=== PATIENT | female | born 1945 | race Caucasian/White ===

== ENCOUNTER 2021-01-01 15:04 | Emergency (ER) | payer MEDICARE, OTHER, SELFPAY ==
[2021-01-01 15:30] VITALS: BP 201/88; PULSE 82; RESP 15; TEMP 36.3; O2SAT 98; BMI 24.5
--- NOTE | 2021-01-01 15:38 | DI.US.S_ITS ---
PROCEDURE: US PERIPH VENOUS LOW EXTREM RT INDICATIONS: rule out dvt TECHNIQUE: Real-time imaging, as well as color and pulse Doppler interrogation, were performed of the lower extremity deep veins from the inguinal ligament to the popliteal fossa. COMPARISON: None. FINDINGS: The common femoral, femoral and popliteal veins are normally compressible, and free of intraluminal thrombus. Color and pulse Doppler demonstrate normal phasic intraluminal flow. There is normal augmentation response to distal compression maneuver. There is a complex focus of echogenicity measuring 4.9 x 3.4 x 1.4 cm in the popliteal fossa. IMPRESSION: Venous thrombosis. Complex Street's cyst is noted. Dictated by: Savanah Michael M.D. on 01/01/2021 at 16:03 Approved by: Savanah Michael M.D. on 01/01/2021 at 16:05
--- NOTE | 2021-01-01 17:58 | PC.NURSE ---
pain and swelling in the morning and then the pain goes away. The right lower leg is not hot, red, or swollen.
--- NOTE | 2021-01-01 18:21 | ED.EXTPRO ---
HPI - Extremity Problem General Chief complaint: Extremity Problem,Nontraumatic Stated complaint: right leg problem, Dr ayers Ultra sound Time Seen by Provider: 01/01/21 17:54 Source: patient Mode of arrival: Ambulatory Limitations: no limitations History of Present Illness HPI Narrative: Patient is a 75-year-old female who presents with some mild right leg swelling ongoing for a week. She says that she did have a trip and fall last week but she does not remember injuring her right leg. This morning she woke up and noted she had some contusion around her calcaneus. She gets some sharp shooting pain from her right hip and down her leg which she says she sometimes has hip pain. However this is a little more. No weakness numbness or tingling. She denies any fever. She occasionally has calf pain which she uses an ice pack for. She is very active she walks every day she certainly is not sedentary no recent hospital stays or travel. No prior history of DVT. Her physician in [place] recommended she come to the ED for an ultrasound. MD Complaint: extremity swelling Onset (ago): week(s) (1) Related Data Allergies Allergy/AdvReac Type Severity Reaction Status Date / Time No Known Drug Allergies Allergy Verified 01/01/21 15:33 Review of Systems Review of Systems ROS Unobtainable: All systems reviewed & are unremarkable except as noted in HPI and below Constitutional Constitutional: Denies chills, Denies fever(s), Denies lethargy and Denies weakness ENT Ears, Nose, Mouth, and Throat: Denies change in voice, Denies neck pain and Denies sore throat Cardiovascular Cardiovascular: Denies chest pain, Denies irregular heart rhythm, Denies lightheadedness, Denies palpitations, Denies dyspnea, Denies dyspnea on exertion and Denies orthopnea Respiratory Respiratory: Denies cough, Denies dyspnea, Denies dyspnea on exertion and Denies wheezing Musculoskeletal Musculoskeletal: Denies neck pain Neurologic Neurologic: Denies weakness Endocrine Endocrine: Denies palpitations Allergic/Immunologic Allergic/Immunologic: Denies wheezing Patient History Social History Smoking Status: Unknown if ever smoked Smoking Status: Unknown if ever smoked alcohol intake frequency: 0-2 drinks per day Alcohol type: wine Substance Use Type: does not use Exam Initial Vital Signs Initial Vital Signs: Vital Signs Temperature 97.3 F L 01/01/21 15:30 Pulse Rate 82 01/01/21 15:30 Respiratory Rate 15 01/01/21 15:30 Blood Pressure 201/88 H 01/01/21 15:30 Pulse Oximetry 98 01/01/21 15:30 GENERAL: Very nice pleasant alert 75-year-old female and in [no acute] distress. HEENT: Head atraumatic,EOMI, pupils reactive, face symmetric, [moist] mucous membranes CARDIOVASCULAR: Regular rate and rhythm without murmurs, rubs or gallops. RESPIRATORY: Breath sounds equal bilaterally, no wheezes rales or rhonchi. EXTREMITIES: Normal range of motion, no clubbing or edema. Neurovascularly intact Right lower extremity mild swelling contusion noted around medial side of calcaneus is non tender Achilles intact strong distal pedal pulse. Calf is soft able to move leg but is slightly more swollen around the knee and then her left leg. Full range of motion no pain in hip with movement. Although she points to the lateral side of her gluteus where the pain originates and radiates down her leg. BACK: No vertebral tenderness no step-offs nontender no sign of trauma NEUROLOGICAL: Alert and oriented x4.Normal gait and speech. SKIN: Warm, dry, no laceration, no petechiae, no rashes or lesions. Course Orders Ordered: ED Orders 01/01/21 15:38 US periph venous low extrem rt Stat Vital Signs Vital signs: Vital Signs - 8 hr 01/01/21 15:30 01/01/21 18:57 Temperature 97.3 F L Pulse Rate 82 75 Respiratory Rate 15 17 Blood Pressure 201/88 H 179/87 H Pulse Oximetry 98 100 MDM - Extremity (Nontraumatic) Imaging Data US - DVT: Radiologist's Impression: PROCEDURE: US PERIP VENOUS LOW EXTREM RT INDICATIONS: rule out dvt TECHNIQUE: Real-time imaging, as well as color and pulse Doppler interrogation, were performed of the lower extremity deep veins from the inguinal ligament to the popliteal fossa. COMPARISON: None. FINDINGS: The common femoral, femoral and popliteal veins are normally compressible, and free of intraluminal thrombus. Color and pulse Doppler demonstrate normal phasic intraluminal flow. There is normal augmentation response to distal compression maneuver. There is a complex focus of echogenicity measuring 4.9 x 3.4 x 1.4 cm in the popliteal fossa. IMPRESSION: Venous thrombosis. Complex Street's cyst is noted. Dictated by: Savanah Michael M.D. on 01/01/2021 at 16:03 Approved by: Savanah Michael M.D. on 01/01/2021 at 16:05 ADDENDUM: Correction to the above: No deep venous thrombosis. Dictated by: Savanah Michael M.D. on 01/01/2021 at 16:45 [facility] Narrative Medical decision making narrative: Patient is found to have Street's cyst which might be causing some of the swelling. She has mild contusion on her right medial heel may be from injury last week she certainly is no bony deformity she is ambulatory without issue at this time I see no need for x-ray. She is extremely active unlikely to be DVT and ultrasound does not show DVT. She has pain in her right hip that also radiates down her right thigh similar to sciatic and nerve pain. She says that she does have, some right hip pain that is chronic any way. At this time recommend she follow-up with her PCP in [place]. Discharge Plan Departure Patient Disposition: Home Clinical Impression: Street cyst Qualifiers: Laterality: right Qualified Code(s): M71.21 - Synovial cyst of popliteal space [Street], right knee Instructions: Street Cyst Activity Restrictions/Additional Instructions: *You have been diagnosed with Street's cyst *What to do: At this time no evidence of blood clot you do have a complex Street's cyst noted behind your right knee which may be causing some of the swelling *Continue to take medications as directed Tylenol 650 mg every 4-6 hours if needed for [id number] pain *Follow up with your primary care provider in 2-3 days *Return to ER if you should have increasing pain swelling shortness of breath redness or any new, worsening or concerning symptoms
[2021-01-01 18:57] VITALS: BP 179/87; PULSE 75; RESP 17; O2SAT 100
== END 2021-01-01 18:57 | disposition home or self-care (01) ==
PROVIDERS: Emergency Provider Emergency Medicine
DX: M71.21 Synovial cyst of popliteal space [Baker], right knee (principal); W19.XXXA Unspecified fall, initial encounter
CPT/HCPCS: 93971; 99281; 99283